=== PATIENT | female | born 1950 | race Caucasian/White ===

== ENCOUNTER → 2016-11-27 | Outpatient (CLI) | payer OTHER ==
[~2016-11-27] MED LIST: ATOR10TA88 PO; CALCTAB5 PO; CHOL200010 PO; IRBE1TAB50 PO; LEVO88TA3 PO
--- NOTE | 2016-11-27 13:59 | MAMMOGRAPHY REPORT ---
BILATERAL DIGITAL SCREENING MAMMOGRAM WITH CAD: 11/27/2016 TECHNIQUE: Current study was also evaluated with a Computer Aided Detection (CAD) system. Bilatera l CC and MLO views were obtained. COMPARISON: Comparison is made to exams dated: 11/06/2015 mammogram, 11/03/2014 mammogram, 1 mammogram, 11/01/2013 mammogram, 10/29/2012 mammogram, and 10/18/2010 mammogram - [facility]. BREAST COMPOSITION: There are scattered areas of fibroglandular density in both breasts. FINDINGS: No suspicious masses, calcifications, or areas of architectural distortion are noted in e ither breast. There has been no significant interval change compared to prior exams. Bilateral genaro gn-appearing calcifications are not significantly changed. IMPRESSION: ACR BI-RADS CATEGORY 2: BENIGN There is no mammographic evidence of malignancy. A 1 year screening mammogram is recommended. The p atient will receive written notification of the results. Approximately 10% of breast cancers are not detected with mammography. A negative mammographic repor t should not delay biopsy if a clinically suggestive mass is present. Jenni Zaman M.D. /:11/27/2016 12:25:28 Finish Photographer: Doris BARRETT(Tika)(Debby), [facility] letter sent: Normal 1/2 BI-RADS Code: ACR BI-RADS Category 2: Benign
== END | disposition home or self-care (01) ==
LOC: C.MAMM 10:48
PROVIDERS: ATTEND Family Medicine
DX: Z12.31 Encounter for screening mammogram for malignant neoplasm of breast (principal)

== ENCOUNTER → 2017-04-25 | Outpatient (CLI) | payer OTHER ==
[~2017-04-25] MED LIST changes: +ATOR10TA82 PO; -ATOR10TA88 PO
[2017-04-25 13:45] LABS: ALT/SGPT 26 U/L (12-78); BLOOD UREA NITROGEN 14 mg/dl (7-18); BUN/CREATININE RATIO 15.3 (10-20); CARBON DIOXIDE 25 mmol/L (21-32); CHLORIDE 105 mmol/L (98-107); CHOLESTEROL 164 mg/dl (0-200); CREATININE 0.93 mg/dl (0.60-1.20); GLUCOSE 87 mg/dl (70-99); SODIUM 141 mmol/L (136-145); TRIGLYCERIDES 115 mg/dl (0-150); VERY LOW DENSITY LIPOPROT CALC 23 mg/dl
[2017-04-25 13:47] LABS: CALCIUM 9.4 mg/dl (8.5-10.1)
[2017-04-25 13:55] LABS: ALB/GLOB RATIO 0.9 (0.9-2); ALKALINE PHOSPHATASE 83 U/L (45-117); AST/SGOT 17 U/L (15-37); CHOLESTEROL/HDL RATIO 3.1; HDL CHOLESTEROL 53 mg/dl; LDL CHOLESTEROL CALCULATED 88 mg/dl; THYROID STIMULATING HORMONE 0.971 uIu/ml (0.300-4.500)
== END | disposition home or self-care (01) ==
LOC: C.LABPVFM 07:55
PROVIDERS: ATTEND Family Medicine
DX: I10 Essential (primary) hypertension (principal); E78.5 Hyperlipidemia, unspecified; E03.9 Hypothyroidism, unspecified

== ENCOUNTER → 2017-06-02 | Outpatient (CLI) | payer OTHER ==
[~2017-06-02] MED LIST changes: -ATOR10TA82 PO; +ATOR10TA88 PO
[2017-06-02 18:23] LABS: LYME DISEASE AB IGM NEG (NEG)
[2017-06-02 18:26] LABS: LYME DISEASE AB IGG NEG (NEG)
== END | disposition home or self-care (01) ==
LOC: C.LABPVFM 15:02
PROVIDERS: ATTEND Nurse Practitioner
DX: S30.861A Insect bite (nonvenomous) of abdominal wall, initial encounter (principal); W57.XXXA Bitten or stung by nonvenomous insect and other nonvenomous arthropods, initial encounter; R53.83 Other fatigue; R25.2 Cramp and spasm

== ENCOUNTER → 2017-07-09 | Outpatient (CLI) | payer OTHER ==
[2017-07-09 13:21] LABS: BLOOD UREA NITROGEN 13 mg/dl (7-18); BUN/CREATININE RATIO 14.2 (10-20); CALCIUM 9.1 mg/dl (8.5-10.1); CARBON DIOXIDE 26 mmol/L (21-32); CHLORIDE 108 mmol/L (98-107); CREATININE 0.94 mg/dl (0.60-1.20); GLUCOSE 97 mg/dl (70-99); MAGNESIUM 2.1 mg/dl (1.8-2.4); POTASSIUM 4.2 mmol/L (3.5-5.1); SODIUM 139 mmol/L (136-145)
== END | disposition home or self-care (01) ==
LOC: C.LABPVFM 10:21
PROVIDERS: ATTEND Nurse Practitioner Family
DX: M79.1 Myalgia (principal); M60.9 Myositis, unspecified

== ENCOUNTER → 2017-07-11 | Outpatient (CLI) | payer OTHER ==
--- NOTE | 2017-07-11 12:02 | DIAGNOSTIC IMAGING REPORT ---
BILATERAL LOWER EXTREMITY VENOUS DOPPLER HISTORY: Bilateral leg pain. MYALGIA, MYOSITIS COMPARISON STUDY: None. FINDINGS: There is normal compressibility, flow, and augmentation within the bilateral lower extremity deep venous systems. IMPRESSION: No DVT within the right or left lower extremity. Electronically signed by: Tutu Hu M.D. 07/11/2017 12:00 PM Dictated Date/Time: 07/11/2017 12:00 PM
== END | disposition home or self-care (01) ==
LOC: C.ULTR 10:55
PROVIDERS: ATTEND Nurse Practitioner Family
DX: M79.1 Myalgia (principal); M79.604 Pain in right leg; M79.605 Pain in left leg

== ENCOUNTER → 2017-10-22 | Outpatient (CLI) | payer OTHER ==
[~2017-10-22] MED LIST changes: +ATOR10TA82 PO; -ATOR10TA88 PO
[2017-10-22 13:34] LABS: ALT/SGPT 20 U/L (12-78); BLOOD UREA NITROGEN 17 mg/dl (7-18); BUN/CREATININE RATIO 20.2 (10-20); CALCIUM 9.1 mg/dl (8.5-10.1); CARBON DIOXIDE 24 mmol/L (21-32); CHLORIDE 104 mmol/L (98-107); CHOLESTEROL 167 mg/dl (0-200); CREATININE 0.84 mg/dl (0.60-1.20); GLUCOSE 97 mg/dl (70-99); POTASSIUM 4.1 mmol/L (3.5-5.1); SODIUM 137 mmol/L (136-145); TRIGLYCERIDES 85 mg/dl (0-150); VERY LOW DENSITY LIPOPROT CALC 17 mg/dl
[2017-10-22 13:45] LABS: ALKALINE PHOSPHATASE 80 U/L (45-117); AST/SGOT 16 U/L (15-37); CHOLESTEROL/HDL RATIO 2.3; HDL CHOLESTEROL 73 mg/dl; LDL CHOLESTEROL CALCULATED 77 mg/dl; THYROID STIMULATING HORMONE 0.385 uIu/ml (0.300-4.500)
== END | disposition home or self-care (01) ==
LOC: C.LABPVFM 09:21
PROVIDERS: ATTEND Family Medicine
DX: I10 Essential (primary) hypertension (principal); E78.5 Hyperlipidemia, unspecified; E03.9 Hypothyroidism, unspecified; S30.861A Insect bite (nonvenomous) of abdominal wall, initial encounter; X58.XXXA Exposure to other specified factors, initial encounter; Z11.59 Encounter for screening for other viral diseases

== ENCOUNTER → 2017-12-01 | Outpatient (CLI) | payer OTHER ==
--- NOTE | 2017-12-02 07:51 | MAMMOGRAPHY REPORT ---
BILATERAL DIGITAL SCREENING MAMMOGRAM TOMOSYNTHESIS WITH CAD: 12/01/2017 CLINICAL HISTORY: Routine screening. Patient has no complaints. TECHNIQUE: Breast tomosynthesis in addition to standard 2D mammography was performed. Current study was also evaluated with a Computer Aided Detection (CAD) system. COMPARISON: Comparison is made to exams dated: 11/27/2016 mammogram, 11/06/2015 mammogram, 11/03/2014 mammogram, 11/01/2013 mammogram, 10/29/2012 mammogram, and 10/24/2011 mammogram - [facility]. BREAST COMPOSITION: There are scattered areas of fibroglandular density in both breasts. FINDINGS: There are diffuse bilateral benign coarse, round and punctate microcalcifications. No new suspicious mass, architectural distortion or cluster of microcalcifications is seen. IMPRESSION: ACR BI-RADS CATEGORY 1: NEGATIVE There is no mammographic evidence of malignancy. A 1 year screening mammogram is recommended. The pa tient will receive written notification of the results. Approximately 10% of breast cancers are not detected with mammography. A negative mammographic report should not delay biopsy if a clinically suggestive mass is present. Nikole Aguilar M.D. ay/:12/01/2017 16:34:10 Shaper Machine Hand: Keeley Dolan, [facility] letter sent: Normal 1/2 BI-RADS Code: ACR BI-RADS Category 1: Negative
== END | disposition home or self-care (01) ==
LOC: C.MAMM 10:05
PROVIDERS: ATTEND Family Medicine
DX: Z12.31 Encounter for screening mammogram for malignant neoplasm of breast (principal)

== ENCOUNTER → 2018-02-26 | Outpatient (CLI) | payer OTHER ==
[2018-02-26 13:59] LABS: ALBUMIN 3.8 gm/dl (3.4-5.0); ALT/SGPT 21 U/L (12-78); BLOOD UREA NITROGEN 17 mg/dl (7-18); CALCIUM 9.1 mg/dl (8.5-10.1); CARBON DIOXIDE 27 mmol/L (21-32); CHOLESTEROL 157 mg/dl (0-200); CREATININE 0.89 mg/dl (0.60-1.20); GLUCOSE 94 mg/dl (70-99); SODIUM 138 mmol/L (136-145)
[2018-02-26 14:13] LABS: ALKALINE PHOSPHATASE 85 U/L (45-117); AST/SGOT 16 U/L (15-37); LDL CHOLESTEROL CALCULATED 76 mg/dl; TOTAL PROTEIN 7.7 gm/dl (6.4-8.2)
== END | disposition home or self-care (01) ==
LOC: C.LABPVFM 08:05
PROVIDERS: ATTEND Family Medicine
DX: I10 Essential (primary) hypertension (principal); E78.5 Hyperlipidemia, unspecified; E03.9 Hypothyroidism, unspecified; L30.9 Dermatitis, unspecified

== ENCOUNTER 2022-01-18 02:26 | Inpatient (IN) ==
[2022-01-18] MEDS ORDERED: ONDANSETRON INJ 2 MG/ML 2 ML VIAL IV STA (02:55)
[2022-01-18] MEDS ORDERED: SODIUM CHLORIDE 0.9% 500 ML IV STA (02:55)
[2022-01-18 03:18] LABS: Hematocrit (blood only) 50.1 % (37-47); Hemoglobin 17.2 g/dL (12.0-16.0); Mean Corpuscular Hemoglobin 31.9 pg (25-34); Mean Corpuscular Hgb Conc 34.3 g/dL (32-36); Mean Corpuscular Volume 92.8 fL (80-100); Mean Platelet Volume 10.7 fL (7.4-10.4); Platelet Count 421 K/uL (130-400); RDW Coefficient of Variation 13.2 % (11.5-14.5); RDW Standard Deviation 44.9 fL (36.4-46.3); White Blood Count 22.45 K/uL (4.8-10.8)
[2022-01-18 03:47] LABS: Basophils # (auto) 0.02 K/uL (0-0.2); Basophils % (auto) 0.1 %; Eosinophils # (auto) 0.01 K/uL (0-0.5); Immature Granulocytes # (auto) 0.05 K/uL (0.00-0.02); Immature Granulocytes % (auto) 0.2 %; Lymphocytes # (auto) 1.35 K/uL (1.2-3.4); Monocytes # (auto) 0.86 K/uL (0.11-0.59); Monocytes % (auto) 3.8 %; Neutrophils # (auto) 20.16 K/uL (1.4-6.5); Neutrophils % (auto) 89.9 %; RBC Morphology Unremarkable
[2022-01-18 03:52] LABS: Alanine Aminotransferase 16 U/L (7-52); BUN Creatinine Ratio 21.2 (10-20); Bilirubin,Total 1.1 mg/dl (0.2-1.0); Blood Urea Nitrogen 22 mg/dl (6-23); Calcium 10.5 mg/dl (8.5-10.1); Carbon Dioxide 21 mmol/L (21-32); Chloride 100 mmol/L (98-107); Creatinine Clr Calc Pharmacy 43.6 ml/min; Est GFR (African American) 61.7 ml/min; Est GFR (Non-African American) 53.3 ml/min; Glucose 212 mg/dl (70-99(Fasting)); Lipase 10 U/L (11-82); Total Protein 8.3 gm/dl (6.0-8.3)
[2022-01-18 03:55] LABS: Troponin I 0.19 ng/ml (0-0.04)
--- NOTE | 2022-01-18 04:19 | Emergency Department Note ---
Impression & Plan Small bowel obstruction, Elevated troponin The patient will be evaluated by the [facility] ED Provider Note NAME: CHACE SORIANO AGE: 71 SEX: F ARRIVES VIA: Walk-In INFORMANT: Patient and ED PROVIDER(S): Ro Kay DO CHIEF COMPLAINT: Abdominal pain PLAN: Disposition: The patient will be evaluated by the [facility] for further care Condition: Stable MEDICAL DECISION MAKING: This is a 71-year-old female patient who presents to the emergency department with abdominal pain started yesterday morning and vomiting. The right upper quadrant ultrasound was unremarkable. The patient went on for CT scan which showed evidence of a small bowel obstruction. Patient was noted to have an elevated troponin with a significant leukocytosis. EKG was unremarkable. Patient had a low-grade fever along with some diarrhea. [facility] for further management. The patient was not experiencing any nausea or vomiting at this time and her pain was controlled and therefore I did not place an NG tube at the moment. She will remain n.p.o. on IV fluids Triage Nursing notes reviewed and agree with them. Additional history obtained from who is at the bedside Vital Signs: reviewed and unremarkable Differential diagnosis: small bowel obstruction, ischemic gut, cholecystitis, appendicitis, diverticulitis ER treatment provided: IV normal saline bolus IV Zofran IV normal saline drip Diagnostics interpreted by me: ECG: Normal sinus rhythm at a rate of [address] segment elevation or signs of ischemia. There is no ectopy. Cardiac Monitoring: Normal sinus rhythm at a rate of 76 Laboratory studies: See below Imaging studies: As per stat rad US RUQ: Limited by bowel gas and patient compliance. Liver is normal. No focal intrahepatic lesion. Multiple shadowing gallstones extending to the gallbladder neck. No sonographic Caceres's sign, wall thickening or pericholecystic fluid. No biliary ductal dilation. The common bile duct is normal in caliber at 2.7 mm. Pancreas is grossly unremarkable. Right kidney normal in appearance. Trace ascit es. CT ABDOMEN & PELVIS With Contrast: Bowel obstruction with transition point in the lower pelvis (series 2 image 75) with immediate upstream fecalization. Upstream bowel loops measure up to 3.2 cm. Distal decompression of the terminal ileum noted. Mild perihepatic ascites which is likely reactive in nature. No evidence of free air. Tubal ligation clips. Colonic diverticulosis. No evidence of diverticulitis. Normal appendix. HPI: 71/F arrives for evaluation of abdominal pain. The patient developed diffuse periumbilical abdominal pain started yesterday morning but became worse this afternoon when she vomited. The patient describes intermittent fever throughout the afternoon and evening with some associated minimal diarrhea. The patient denies ever having pain like this in the past. The patient does describe the pain as being worse when she moves around. The patient originally threw up the food that she had eaten earlier in the day but upon arrival here in the emergency department, she threw up bile. ROS: See above HPI for pertinent positives & negatives. A total of 10 systems reviewed and were otherwise negative. PAST MEDICAL HISTORY:See Below PAST SURGICAL HISTORY:See Below FAMILY HISTORY:See Below SOCIAL HISTORY:Does not smoke or drink alcohol. She lives with her . HOME MEDICATIONS:See list ALLERGIES:See list VITALS:See Below PHYSICAL EXAMINATION: HEENT: Head - normocephalic and atraumatic. Pupils are equal, round, and reactive to light. Extraocular eye muscles are intact, and sclera are anicteric. Nose - moist nasal mucosa without discharge. Mouth - moist buccal mucosa. Oropharynx is nonerythematous and there is no tonsillar exudate or edema noted. Neck: Supple; no JVD or cervical lymphadenopathy Heart: Regular rate and rhythm. There is a normal S1 and S2 with no murmurs, clicks, or gallops appreciated. Lungs: Clear to auscultation bilaterally with no wheezes, rales, or rhonchi. Abdomen: Soft, nondistended moderately tender to palpation around the umbilicus and in the right upper quadrant. With good bowel sounds. There are no palpable pulsatile masses or hepatosplenomegaly. There is no guarding, rigidity, or rebound noted. Extremities: No evidence of cyanosis, clubbing, or edema. There are easily palpable peripheral pulses. Skin: Pale, warm and dry with good turgor and no rashes. ED COURSE: Times/Reassessments: 0230: The patient was evaluated in room C3. A complete history and physical was performed. An IV lock was initiated and labs were drawn as above. The patient was given 4 mg of IV Zofran and bolused with IV nor mal saline solution. An order was placed for continuous cardiac monitoring. The patient was in a n ormal sinus rhythm at a rate of 76 A twelve-lead EKG was obtained. She will go for ultrasound of the right upper quadrant to evaluate the gallbladder. The ultrasound was negative. Upon repeat evaluation of the patient, she still was comfortable. She went for CT scan of the abdomen and pelvis and this revealed a small bowel obstruction. I reviewed the rest of the results with the patient including the elevated troponin. The patient was started on IV normal saline drip [facility] will evaluate for further management. Ro Kay, Past Med/Surg History Medical History Benign essential tremor Hypertension Hypothyroidism Mixed hyperlipidemia Surgical History H/O arthroscopic knee surgery History of cataract surgery History of colonoscopy Family History Mother CHF (congestive heart failure) Father CHF (congestive heart failure) Sister Coronary heart disease Other Breast cancer Denies family history of Ovarian cancer Prostate cancer Myocardial infarction Colorectal cancer Social History Smoking Status: Never smoker Hx Alcohol Use: No Hx Substance Use: No Preferred Language: Bengali Communication Ability: Effective Phone Operator Required: No Beliefs That Will Affect Care: None marital status: Current Living Situation: Spouse current occupational status: retired Feels Safe at Home: Yes caffeine: No Dental Care, Regularly: Yes Physical Activity Frequency: 3-4 Times per Week Seatbelt Use: always Sunscreen Use: Yes Assistive Devices: Glasses Allergies Allergies Allergy/AdvReac Type Severity Reaction Status Date / Time amoxicillin Allergy Intermediate SWELLING Verified 01/18/22 02:56 AND REDNESS simvastatin Allergy Mild felt sick Verified 01/18/22 02:56 tetanus toxoid, adsorbed Allergy Mild Red, hard, Verified 01/18/22 02:56 infected Prevnar 13 Intramuscular Allergy Unknown PT NOT Uncoded 01/18/22 02:56 Suspe SURE IF HAD PROBLEM WITH Home Meds Home Medications Medication Instructions Recorded Confirmed cholecalciferol (vitamin D3) 50 2,000 units PO PM 05/17/19 01/18/22 mcg (2,000 unit) capsule aspirin 81 mg tablet,delayed 81 mg PO PM #30 tab 08/24/19 01/18/22 release calcium carbonate 600 mg calcium 600 mg PO PM tab 08/24/19 01/18/22 (1,500 mg) tablet (Calcium) Previous Rx's Medication Instructions Recorded levothyroxine 88 mcg tablet 88 mcg PO QAM #90 tab 03/06/21 donepezil 5 mg tablet (Aricept) 5 mg PO DAILY #30 tab 05/01/21 atorvastatin 10 mg tablet 10 mg PO PM #90 tab 07/24/21 irbesartan 300 mg tablet 300 mg PO PM #90 tab 09/17/21 Results & Data (ED) Vital Signs Vital Signs - 24 hr 01/18/22 02:26 01/18/22 03:08 01/18/22 03:23 Temperature 36.0 C L Temperature Source Temporal Artery Scan Pulse Rate 90 Pulse Rate [Finger] 76 Pulse Rhythm [Finger] Regular Pulse Strength [Finger] Normal Respiratory Rate 18 18 Respiratory Effort / Characteristics Non-Labored Spontaneous Respiratory Depth Normal Blood Pressure 108/68 Blood Pressure [Left Arm] 129/82 Blood Pressure Mean 81 Blood Pressure Mean [Left Arm] 97 Blood Pressure Position Sitting Blood Pressure Position [Left Arm] Sitting Pulse Oximetry 96 94 94 Oxygen Delivery Method Room Air Room Air Room Air Sepsis Recent Fever Within 48 Hours No Sepsis New/Unexplained Change in Mental Status N/A Sepsis Action Taken by Nursing No Action Required 01/18/22 05:50 01/18/22 07:00 Temperature Temperature Source Pulse Rate Pulse Rate [Finger] 82 87 Pulse Rhythm [Finger] Regular Pulse Strength [Finger] Normal Respiratory Rate 18 18 Respiratory Effort / Characteristics Non-Labored Spontaneous Non-Labored Respiratory Depth Normal Normal Blood Pressure Blood Pressure [Left Arm] 148/76 H 133/66 Blood Pressure Mean Blood Pressure Mean [Left Arm] 100 88 Blood Pressure Position Blood Pressure Position [Left Arm] Sitting Pulse Oximetry 98 95 Oxygen Delivery Method Room Air Room Air Sepsis Recent Fever Within 48 Hours Sepsis New/Unexplained Change in Mental Status Sepsis Action Taken by Nursing Laboratory Data Result diagrams: 01/18/22 03:10 01/18/22 04:36 Lab Results 01/18/22 01/18/22 01/18/22 Range/Units 02:55 03:10 03:10 WBC 22.45 H (4.8-10.8) K/uL RBC 5.40 (4.2-5.4) M/uL Hgb 17.2 H (12.0-16.0) g/dL Hct 50.1 H (37-47) % MCV 92.8 (80-100) fL MCH 31.9 (25-34) pg MCHC 34.3 (32-36) g/dL RDW Std Deviation 44.9 (36.4-46.3) fL RDW Coeff of José 13.2 (11.5-14.5) % Plt Count 421 H (130-400) K/uL MPV 10.7 H (7.4-10.4) fL Immature Gran % (Auto) 0.2 % Neut % (Auto) 89.9 % Lymph % (Auto) 6.0 % Chilton % (Auto) 3.8 % Eos % (Auto) 0.0 % Baso % (Auto) 0.1 % Neut # (Auto) 20.16 H (1.4-6.5) K/uL Lymph # (Auto) 1.35 (1.2-3.4) K/uL Chilton # (Auto) 0.86 H (0.11-0.59) K/uL Eos # (Auto) 0.01 (0-0.5) K/uL Baso # (Auto) 0.02 (0-0.2) K/uL Immature Gran # (Auto) 0.05 H (0.00-0.02) K/uL RBC Morphology Unremarkable Sodium (136-145) mmol/L Potassium (3.5-5.1) mmol/L Chloride 100 (98-107) mmol/L Carbon Dioxide 21 (21-32) mmol/L Anion Gap TNP BUN 22 (6-23) mg/dl Creatinine 1.04 (0.6-1.2) mg/dl Est Cr Clr Drug Dosing 43.6 ml/min Est GFR ( Amer) 61.7 ml/min Est GFR (Non-Af Amer) 53.3 ml/min BUN/Creatinine Ratio 21.2 H (10-20) Glucose 212 H (70-99(Fasting)) mg/dl Estimat Average Glucose 126 mg/dl Hemoglobin A1c 6.0 H (4.5-5.6) % Calcium 10.5 H (8.5-10.1) mg/dl Phosphorus (2.5-4.9) mg/dl Magnesium (1.7-2.4) mg/dl Total Bilirubin 1.1 H (0.2-1.0) mg/dl AST (13-39) U/L ALT 16 (7-52) U/L Alkaline Phosphatase (34-104) U/L Troponin I 0.19 H* (0-0.04) ng/ml Total Protein 8.3 (6.0-8.3) gm/dl Albumin (3.4-5.0) gm/dl Globulin TNP Albumin/Globulin Ratio TNP Lipase 10 L (11-82) U/L Urine Color Urine Appearance (Clear) Urine pH (4.5-7.5) Ur Specific Keystone (1.000-1.030) Urine Protein (Negative) Urine Glucose (UA) (Negative) Urine Ketones (Negative) Urine Blood (Negative) Urine Nitrite (Negative) Urine Bilirubin (Negative) Urine Urobilinogen (Negative) Ur Leukocyte Esterase (Negative) SARS-CoV-2, RNA, NAAT (NEGATIVE) 01/18/22 01/18/22 01/18/22 Range/Units 03:43 04:36 04:36 WBC (4.8-10.8) K/uL RBC (4.2-5.4) M/uL Hgb (12.0-16.0) g/dL Hct (37-47) % MCV (80-100) fL MCH (25-34) pg MCHC (32-36) g/dL RDW Std Deviation (36.4-46.3) fL RDW Coeff of José (11.5-14.5) % Plt Count (130-400) K/uL MPV (7.4-10.4) fL Immature Gran % (Auto) % Neut % (Auto) % Lymph % (Auto) % Chilton % (Auto) % Eos % (Auto) % Baso % (Auto) % Neut # (Auto) (1.4-6.5) K/uL Lymph # (Auto) (1.2-3.4) K/uL Chilton # (Auto) (0.11-0.59) K/uL Eos # (Auto) (0-0.5) K/uL Baso # (Auto) (0-0.2) K/uL Immature Gran # (Auto) (0.00-0.02) K/uL RBC Morphology Sodium 138 (136-145) mmol/L Potassium 4.3 (3.5-5.1) mmol/L Chloride (98-107) mmol/L Carbon Dioxide (21-32) mmol/L Anion Gap BUN (6-23) mg/dl Creatinine (0.6-1.2) mg/dl Est Cr Clr Drug Dosing ml/min Est GFR ( Amer) ml/min Est GFR (Non-Af Amer) ml/min BUN/Creatinine Ratio (10-20) Glucose (70-99(Fasting)) mg/dl Estimat Average Glucose mg/dl Hemoglobin A1c (4.5-5.6) % Calcium (8.5-10.1) mg/dl Phosphorus 4.2 (2.5-4.9) mg/dl Magnesium 1.6 L (1.7-2.4) mg/dl Total Bilirubin (0.2-1.0) mg/dl AST 14 (13-39) U/L ALT (7-52) U/L Alkaline Phosphatase 81 (34-104) U/L Troponin I (0-0.04) ng/ml Total Protein (6.0-8.3) gm/dl Albumin 4.2 (3.4-5.0) gm/dl Globulin Albumin/Globulin Ratio Lipase (11-82) U/L Urine Color Urine Appearance (Clear) Urine pH (4.5-7.5) Ur Specific Keystone (1.000-1.030) Urine Protein (Negative) Urine Glucose (UA) (Negative) Urine Ketones (Negative) Urine Blood (Negative) Urine Nitrite (Negative) Urine Bilirubin (Negative) Urine Urobilinogen (Negative) Ur Leukocyte Esterase (Negative) SARS-CoV-2, RNA, NAAT NEGATIVE (NEGATIVE) 01/18/22 Range/Units 04:37 WBC (4.8-10.8) K/uL RBC (4.2-5.4) M/uL Hgb (12.0-16.0) g/dL Hct (37-47) % MCV (80-100) fL MCH (25-34) pg MCHC (32-36) g/dL RDW Std Deviation (36.4-46.3) fL RDW Coeff of José (11.5-14.5) % Plt Count (130-400) K/uL MPV (7.4-10.4) fL Immature Gran % (Auto) % Neut % (Auto) % Lymph % (Auto) % Chilton % (Auto) % Eos % (Auto) % Baso % (Auto) % Neut # (Auto) (1.4-6.5) K/uL Lymph # (Auto) (1.2-3.4) K/uL [place]ilton # (Auto) (0.11-0.59) K/uL Eos # (Auto) (0-0.5) K/uL Baso # (Auto) (0-0.2) K/uL Immature Gran # (Auto) (0.00-0.02) K/uL RBC Morphology Sodium (136-145) mmol/L Potassium (3.5-5.1) mmol/L Chloride (98-107) mmol/L Carbon Dioxide (21-32) mmol/L Anion Gap BUN (6-23) mg/dl Creatinine (0.6-1.2) mg/dl Est Cr Clr Drug Dosing ml/min Est GFR ( Amer) ml/min Est GFR (Non-Af Amer) ml/min BUN/Creatinine Ratio (10-20) Glucose (70-99(Fasting)) mg/dl Estimat Average Glucose mg/dl Hemoglobin A1c (4.5-5.6) % Calcium (8.5-10.1) mg/dl Phosphorus (2.5-4.9) mg/dl Magnesium (1.7-2.4) mg/dl Total Bilirubin (0.2-1.0) mg/dl AST (13-39) U/L ALT (7-52) U/L Alkaline Phosphatase (34-104) U/L Troponin I (0-0.04) ng/ml Total Protein (6.0-8.3) gm/dl Albumin (3.4-5.0) gm/dl Globulin Albumin/Globulin Ratio Lipase (11-82) U/L Urine Color Yellow Urine Appearance Clear (Clear) Urine pH 5.0 (4.5-7.5) Ur Specific Keystone >= 1.030 (1.000-1.030) Urine Protein 1+ H (Negative) Urine Glucose (UA) Negative (Negative) Urine Ketones 1+ H (Negative) Urine Blood Negative (Negative) Urine Nitrite Negative (Negative) Urine Bilirubin 1+ H (Negative) Urine Urobilinogen Negative (Negative) Ur Leukocyte Esterase Negative (Negative) SARS-CoV-2, RNA, NAAT (NEGATIVE) Administered Medications Heparin Sodium (Porcine) (Heparin Sod 5,000 Unit/0.5 Ml Vial) 5,000 units SQ Q12 MONET Stop: 02/17/22 10:29 Last Admin: 01/18/22 11:20 Dose: 5,000 units Documented by: [id number] Dextrose/Lactated Ringer's (D5w And Lactated Ringers) 1,000 mls @ 100 mls/hr IV .Q10H MONET Stop: 02/17/22 10:09 Last Admin: 01/18/22 11:20 Dose: 100 mls/hr Documented by: [id number] Discontinued Medications Sodium Chloride (Nss) 500 mls @ 999 mls/hr IV .Q31M STA Stop: 01/18/22 03:25 Last Infusion: 01/18/22 03:37 Dose: 0 mls/hr Documented by: [id number] Admin: 01/18/22 03:06 Dose: 999 mls/hr Documented by: [id number] Sodium Chloride (Nss) 500 mls @ 125 mls/hr IV .Q4H MONET Stop: 02/17/22 06:44 Last Infusion: 01/18/22 10:55 Dose: 0 mls/hr Documented by: [id number] Admin: 01/18/22 06:45 Dose: 125 mls/hr Documented by: [id number] Ertapenem (Invanz) 10 mls @ 2 mls/min IV NOW STA Stop: 01/18/22 07:41 Last Admin: 01/18/22 08:58 Dose: 2 mls/min Documented by: [id number] Ioversol (Optiray 320 100ml) 95 ml IV ONCE ONE Stop: 01/18/22 05:48 Last Admin: 01/18/22 05:47 Dose: 95 ml Documented by: [id number] Ondansetron HCl (Ondansetron Inj 2 Mg/Ml 2 Ml Vial) 4 mg IV NOW STA Stop: 01/18/22 02:56 Last Admin: 01/18/22 03:05 Dose: 4 mg Documented by: [id number] Imaging Data Radiologist's Impression: Gallbladder Ultrasound 01/18/22 03:37 ABDOMINAL ULTRASOUND, RIGHT UPPER QUADRANT HISTORY: Right upper quadrant abdominal pain.. COMPARISON: None. FINDINGS: Pancreas: The pancreas demonstrates a normal echotexture. Liver: Unremarkable. Trace ascites adjacent to the liver. Gallbladder: A few gallstones. No gallbladder wall thickening. Negative so nographic Caceres sign. CBD: 3 mm. Right kidney: No hydronephrosis. IMPRESSION: 1. Cholelithiasis. No gallbladder wall thickening. 2. Trace ascites is noted. ACT 112: Negative or not required by law. Electronically signed by: Tutu Hu M.D. 01/18/2022 7:49 AM Abdomen/Pelvis CT 01/18/22 05:27 CT OF THE ABDOMEN AND PELVIS WITH CONTRAST CLINICAL HISTORY: Abdominal pain, nausea, vomiting and diarrhea. Evaluate for diverticulitis versus appendicitis. COMPARISON STUDY: Right upper quadrant ultrasound performed earlier today. TECHNIQUE: Following IV administration of 95 mL of Optiray, axial images of the abdomen and pelvis were obtained from the lung bases to the proximal femurs. Images were reviewed in the axial, sagittal, and coronal planes. IV contrast was administered without complication. Automated exposure control was utilized for the study. A dose lowering technique was utilized adhering to the principles of ALARA. CT DOSE: 501.05 mGy.cm FINDINGS: Lung bases are unremarkable. No pneumatosis, free air or portal venous gas is present. A small amount of abdominal and pelvic ascites is noted. No hepatic lesions are present. Probable hepatic steatosis. No biliary or pancreatic ductal dilatation is present. The spleen, adrenal glands, kidneys and pancreas are unremarkable. There are gallstones within the gallbladder. There is no evidence for acute cholecystitis. There are findings consistent with a small bowel obstruction. Specifically, the proximal to mid small bowel is moderately dilated and fluid-filled. Small bowel feces sign is noted. Transition point within the central pelvis on axial image 371 of 476 is noted. Distal small bowel is decompressed. Small amount of interloop ascites is present. There are pelvic surgical clips. No acute fracture or suspicious lesion is identified within visualized skeletal structures. Major vasculature is patent. No hydronephrosis. Colonic diverticulosis is noted without evidence for acute diverticulitis. The appendix is normal. There is no lymphadenopathy. No abscess. IMPRESSION: Findings consistent with a small bowel obstruction with transition point within the distal ileum. Small amount of associated ascites and mesenteric infiltration. ACT 112: Negative or not required by law. Electronically signed by: Owen Mims M.D. 01/18/2022 6:48 AM Discharge Plan Visit Data Chief Complaint: Abdominal Pain Stated Complaint: ABD PAIN ED Provider: Ro Kay Discharge Problem: Small bowel obstruction, Elevated troponin Patient Disposition: Admitted As Inpatient Discharge Instructions Interventions: ED Discharge Assessment Last Done: 01/18/22 15:00
[2022-01-18 04:53] LABS: Appearance Urine Clear (Clear); Bilirubin Urine 1+ (Negative); Blood Urine Negative (Negative); Glucose Urine UA Negative (Negative); Ketones Urine 1+ (Negative); Leukocyte Esterase Urine Negative (Negative); Nitrite Urine Negative (Negative); Protein Urine 1+ (Negative); Specific Gravity Urine >= 1.030 (1.000-1.030); Urobilinogen Urine Negative (Negative)
[2022-01-18 04:55] LABS: Color Urine Yellow
[2022-01-18 05:01] LABS: Albumin Level 4.2 gm/dl (3.4-5.0); Potassium 4.3 mmol/L (3.5-5.1)
[2022-01-18] MEDS ORDERED: OPTIRAY 320 100ml IV ONE (05:47)
[2022-01-18] MEDS ORDERED: SODIUM CHLORIDE 0.9% 500 ML IV SCH (06:45)
--- NOTE | 2022-01-18 06:49 | CT Scan Report ---
CT OF THE ABDOMEN AND PELVIS WITH CONTRAST CLINICAL HISTORY: Abdominal pain, nausea, vomiting and diarrhea. Evaluate for diverticulitis versus a ppendicitis. COMPARISON STUDY: Right upper quadrant ultrasound performed earlier today. TECHNIQUE: Following IV administration of 95 mL of Optiray, axial images of the abdomen and pelvis we re obtained from the lung bases to the proximal femurs. Images were reviewed in the axial, sagittal, and coronal planes. IV contrast was administered without complication. Automated exposure control wa s utilized for the study. A dose lowering technique was utilized adhering to the principles of ALARA . CT DOSE: 501.05 mGy.cm FINDINGS: Lung bases are unremarkable. No pneumatosis, free air or portal venous gas is present. A sm all amount of abdominal and pelvic ascites is noted. No hepatic lesions are present. Probable hepatic steatosis. No biliary or pancreatic ductal dilatation is present. The spleen, adrenal glands, kidney s and pancreas are unremarkable. There are gallstones within the gallbladder. There is no evidence fo r acute cholecystitis. There are findings consistent with a small bowel obstruction. Specifically, th e proximal to mid small bowel is moderately dilated and fluid-filled. Small bowel feces sign is noted . Transition point within the central pelvis on axial image 371 of 476 is noted. Distal small bowel i s decompressed. Small amount of interloop ascites is present. There are pelvic surgical clips. No acu te fracture or suspicious lesion is identified within visualized skeletal structures. Major vasculatu re is patent. No hydronephrosis. Colonic diverticulosis is noted without evidence for acute diverticu litis. The appendix is normal. There is no lymphadenopathy. No abscess. IMPRESSION: Findings consistent with a small bowel obstruction with transition point within the dist al ileum. Small amount of associated ascites and mesenteric infiltration. ACT 112: Negative or not required by law. Electronically signed by: Owen Mims M.D. 01/18/2022 6:48 AM
[2022-01-18] MEDS ORDERED: ERTAPENEM SODIUM 10 ML IV STA (07:37)
[2022-01-18] MEDS ORDERED: hydrALAZINE HCL 20 MG/ML VIAL IV PRN (07:37)
--- NOTE | 2022-01-18 07:50 | Ultrasound Report ---
ABDOMINAL ULTRASOUND, RIGHT UPPER QUADRANT HISTORY: Right upper quadrant abdominal pain.. COMPARISON: None. FINDINGS: Pancreas: The pancreas demonstrates a normal echotexture. Liver: Unremarkable. Trace ascites adjacent to the liver. Gallbladder: A few gallstones. No gallbladder wall thickening. Negative sonographic Caceres sign. CBD: 3 mm. Right kidney: No hydronephrosis. IMPRESSION: 1. Cholelithiasis. No gallbladder wall thickening. 2. Trace ascites is noted. ACT 112: Negative or not required by law. Electronically signed by: Tutu Hu M.D. 01/18/2022 7:49 AM
--- NOTE | 2022-01-18 09:47 | History & Physical Report ---
Date of Service January 18, 2022 Assessment & Plan (1) SBO (small bowel obstruction): Plan: 71-year-old white female with a past medical history of HTN, HLD and hypothyroi dism presented to the emergency department with abdominal pain and found to have radiographic evidence of a small bowel obstruction and associated leukocytosis hospitalized for further evaluation and care. * Past surgical history includes: Bilateral tubal ligation. Uncertain if this is a mechanical obstruction from adhesions * Does have associated leukocytosis. This could perhaps be reactive from vomiting or etiology could be infectious * At any rate, we will keep her n.p.o. for bowel rest * Hold off on NGT for now as she is not having any abdominal discomfort at the moment, she denies nausea, her abdomen is soft and nondistended. Would have low threshold to advance NGT should symptoms worsen * Ambulation encouraged * IV Dilaudid for pain and IV Zofran for nausea * Consult general surgery. Appreciate assistance * Will initiate empiric antibiotics given the associated leukocytosis and concer n for infectious etiology. She has a penicillin allergy and ideally would use IV Levaquin/Flagyl; however, Flagyl unavailable due to lack of supplies. We will use Invanz for now but could transition to Levaquin/Flagyl once able to tolerate orals. * Patient is UTD with colonoscopy done 2 to 3 years ago and "normal" per patient * Follow-up labs and KUB in the a.m. * Continue to follow clinically (2) Leukocytosis: Plan: * ? Reactive versus infectious as outlined above * Empiric antibiotics as outlined above (3) Elevated troponin: Plan: * Presenting troponin slightly elevated at 0.19. Denies reports of chest pain. EKG nonacute. * Stress echocardiogram done 04/23/2021 and negative for ischemia * Could be supply/demand mismatch secondary to #1 * Cycle troponin * Follow-up EKG in a.m. * Update echocardiogram * Pending above, would consider cardiology consult but can hold off for now (4) Hypertension: Plan: * Given n.p.o. status, her oral antihypertensive agents are currently on hold * IV hydralazine ordered with parameters (5) Hypothyroidism: Plan: * Hold Synthroid currently given n.p.o. status but resume once oral intake ree stablished Plan: * Plan of care will be discussed with Dr. Gomez. Further orders as warranted. History of Present Illness Chief Complaint: Abdominal pain X 2 days Primary Care Provider: KYLE Schreiber Mrs. Gamez is a 71-year-old white female with an underlying past medical history of HTN, HLD, and hypothyroidism. She presented to the emergency department complaining of intermittent abdominal discomfort X 2 days. Started yesterday late morning. Located in the LLQ and radiates into the suprapubic region. Has been waxing and waning. Worse after eating lunch yesterday. Described as a cramping sensation and at its worst is a 6/10. Reports that the discomfort c omes in waves and although she did not do note that it was aggravated by oral intake, her reports that it seemed much worse after lunch. Was unable to eat dinner last evening because of the pain. Denies any fevers or chills but did have associated vomiting X3 bouts. Last normal bowel movement was yesterday morning and since then it has been loose stools. No other ill contacts. Presented to the emergency department where she was found to have leukocytosis of 22,000 with a left shift and radiographic evidence of a small bowel obstruction. Only abdominal surgeries in the past is a laparoscopic bilateral tubal ligation. She is up-to-date with colonoscopy (done 2 to 3 years ago and normal per patient). She was treated with IV Zofran in the emergency department and subsequently hospitalized for further evaluation and care. Allergies Allergy/AdvReac Type Severity Reaction Status Date / Time amoxicillin Allergy Intermediate SWELLING Verified 01/18/22 02:56 AND REDNESS simvastatin Allergy Mild felt sick Verified 01/18/22 02:56 tetanus toxoid, adsorbed Allergy Mild Red, hard, Verified 01/18/22 02:56 infected Prevnar 13 Intramuscular Allergy Unknown PT NOT Uncoded 01/18/22 02:56 Suspe SURE IF HAD PROBLEM WITH Home Medications Medication Instructions Recorded Confirmed Type cholecalciferol (vitamin D3) 50 2,000 units PO PM 05/17/19 01/18/22 History mcg (2,000 unit) capsule aspirin 81 mg tablet,delayed 81 mg PO PM #30 tab 08/24/19 01/18/22 History release calcium carbonate 600 mg calcium 600 mg PO PM tab 08/24/19 01/18/22 History (1,500 mg) tablet (Calcium) levothyroxine 88 mcg tablet 88 mcg PO QAM #90 tab 04/20/21 03/04/22 Rx donepezil 5 mg tablet (Aricept) 5 mg PO DAILY #30 tab 05/01/21 01/18/22 Rx atorvastatin 10 mg tablet 10 mg PO PM #90 tab 07/24/21 01/18/22 Rx irbesartan 300 mg tablet 300 mg PO PM #90 tab 09/17/21 01/18/22 Rx Past Med/Surg History Medical History Benign essential tremor Hypertension Hypothyroidism Mixed hyperlipidemia Surgical History H/O arthroscopic knee surgery History of cataract surgery History of colonoscopy Family History Mother CHF (congestive heart failure) Father CHF (congestive heart failure) Sister Coronary heart disease Other Breast cancer Denies family history of Ovarian cancer Prostate cancer Myocardial infarction Colorectal cancer Social History Smoking Status: Never smoker Second Hand Exposure: No; Hx Alcohol Use: No Hx Substance Use: No Preferred Language: American Communication Ability: Effective 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 Beliefs That Will Affect Care: None marital status: Current Living Situation: Spouse current occupational status: retired Feels Safe at Home: Yes caffeine: No Dental Care, Regularly: Yes Physical Activity Frequency: 3-4 Times per Week Seatbelt Use: always Sunscreen Use: Yes Assistive Devices: None Review of Systems Review of Systems: All systems reviewed and are unremarkable except as noted in HPI and below Denies fevers, chills, headache, nasal congestion, sore throat, cough, chest pain, shortness of breath, palpitations, orthopnea, PND, constipation, dysuria, hematuria, frequency, back pain, joint pain or swelling, easy bruising or bleeding, skin lesions or rashes. Physical Exam Physical Exam: General: Resting comfortably in her hospital bed. She does not appear in any discomfort. She does not appear ill or toxic. NAD. HEENT: Head is AT/NC. Buccal mucosa is moist and pink. Poor dentition Neck: No JVD. Negative hepatojugular reflex Cardiac: RRR with 1/6 to 2/6 ABBY Lungs: CTA without W/R/R Abdomen: Hypoactive X4. Abdomen is nondistended. It is soft with tenderness in the LL and RYAN quadrants Extremities: No peripheral clubbing cyanosis or edema Neuro: A&O X4. Cranial nerves II through XII are grossly intact. No focal neuro deficits Skin: No obvious skin lesions or rashes Psych: Appropriate affect. Pleasant and cooperative Results & Data Results & Data ([facility]) Vital Signs (Past 12 Hours) Vital Signs Temp Pulse Pulse Resp BP BP Pulse Ox 01/18/22 05:50 82 18 148/76 H 98 01/18/22 03:23 76 18 129/82 94 01/18/22 03:08 94 01/18/22 02:26 36.0 C L 90 18 108/68 96 Laboratory Results 01/18/22 03:10 Sodium: 138 Potassium: 4.3 Chloride: 100 CO2: 21 BUN: 22 Creatinine: 1.[address] of the abdomen and pelvis: FINDINGS: Lung bases are unremarkable. No pneumatosis, free air or portal venous gas is present. A small amount of abdominal and pelvic ascites is noted. No hepatic lesions are present. Probable hepatic steatosis. No biliary or pancreatic ductal dilatation is present. The spleen, adrenal glands, kidneys and pancreas are unremarkable. There are gallstones within the gallbladder. There is no evidence for acute cholecystitis. There are findings consistent with a small bowel obstruction. Specifically, the proximal to mid small bowel is moderately dilated and fluid-filled. Small bowel feces sign is noted. Transition point within the central pelvis on axial image 371 of 476 is noted. Distal small bowel is decompressed. Small amount of interloop ascites is present. There are pelvic surgical clips. No acute fracture or suspicious lesion is identified within visualized skeletal structures. Major vasculature is patent. No hydronephrosis. Colonic diverticulosis is noted without evidence for acute diverticulitis. The appendix is normal. There is no lymphadenopathy. No abscess. IMPRESSION: Findings consistent with a small bowel obstruction with transition point within the distal ileum. Small amount of associated ascites and mesenteric infiltration. Right upper quadrant ultrasound: IMPRESSION: 1. Cholelithiasis. No gallbladder wall thickening. 2. Trace ascites is noted. EKG: Normal sinus rhythm. Rate 90 bpm. Left axis deviation. Poor R wave progression but otherwise no acute ST/T wave changes. Code Status & VTE Plan VTE Prophylaxis Plan VTE Prophylaxis will be ordered: Yes Supervising Physician Co-Signing Physician Notes Patient seen and examined, chart reviewed, case discussed with Suzie Palacios PA-C and I agree with the assessment and plan as above except as otherwise noted General: A&Ox3. NAD. Cooperative. HEENT: Atraumatic, normocephalic. Pulm: CTAB A&P. -wheezes, -rales, -rhonchi. Symmetrical chest rise. No increase work of breathing. No respiratory distress. Cardiac: RRR, +SM. Radial pulses intact and symmetrical. Abdominal: Soft, LUQ mild TTP without rebound All labs and images reviewed 71yo who presents with SBO. Hx tubal ligation, no other hx surgical intervention/abdominal sx. Has had colonoscopies without abnormal findings in th e past, no masses/obstructions/diverticuli per pt. +leukocytosis suspect reactive but empirically covered as above. Continue Medical tx of SBO, zofran/dilaudid NPO with fluids. Trop 0.[address] changes on EKG, suspect demand, trended. Stress echo in last year negative/normal. Suspect demand isch emia. Pt does endorse liquid BMs w/o hx of C diff or recent abx use. Clinically with diarrhea not constipation although no flatus. C. diff pending. PG Care Time/CCT Total # of Minutes Spent Total Time Spent with Patient: Total time spent is greater than 50% in coordination of care (as documented) at patient's floor/unit and/or counseling patient: Coding Level of Care Code 60513 Initial Inpt Care Lvl 3 Diagnoses SBO (small bowel obstruction) K56.609 Leukocytosis D72.829 Elevated troponin R77.8 Hypertension I10 Hypothyroidism E03.9
--- NOTE | 2022-01-18 10:03 | Surgery Consultation ---
Date of Consultation January 18, 2022 Assessment & Plan (1) SBO (small bowel obstruction): Patient admitted with small bowel obstruction and dehydration I would have a very low threshold to place an NG tube if there is any pain or emesis Obviously monitor her electrolytes-follow phos and mag Rehydrate At some point possible contrast study depending on her progress Can hold off on urgent surgery for now History of Present Illness History of Present Illness 71-year-old female admitted to the emergency room with nausea and vomiting Evidence on her CAT scan of dilated small bowel consistent with small bowel obstruction with transition in the distal ileum Patient has had prior tubal ligation She is in no distress at the current time Her white blood cell count is 22,000 and she is dehydrated Allergies Allergy/AdvReac Type Severity Reaction Status Date / Time amoxicillin Allergy Intermediate SWELLING Verified 01/18/22 02:56 AND REDNESS simvastatin Allergy Mild felt sick Verified 01/18/22 02:56 tetanus toxoid, adsorbed Allergy Mild Red, hard, Verified 01/18/22 02:56 infected Prevnar 13 Intramuscular Allergy Unknown PT NOT Uncoded 01/18/22 02:56 Suspe SURE IF HAD PROBLEM WITH Home Medications Medication Instructions Recorded Confirmed Type cholecalciferol (vitamin D3) 50 2,000 units PO PM 05/17/19 01/18/22 History mcg (2,000 unit) capsule aspirin 81 mg tablet,delayed 81 mg PO PM #30 tab 08/24/19 01/18/22 History release calcium carbonate 600 mg calcium 600 mg PO PM tab 08/24/19 01/18/22 History (1,500 mg) tablet (Calcium) levothyroxine 88 mcg tablet 88 mcg PO QAM #90 tab 03/06/21 01/18/22 Rx donepezil 5 mg tablet (Aricept) 5 mg PO DAILY #30 tab 05/01/21 01/18/22 Rx atorvastatin 10 mg tablet 10 mg PO PM #90 tab 07/24/21 01/18/22 Rx irbesartan 300 mg tablet 300 mg PO PM #90 tab 09/17/21 01/18/22 Rx Patient History Medical History Benign essential tremor Hypertension Hypothyroidism Mixed hyperlipidemia Surgical History H/O arthroscopic knee surgery History of cataract surgery History of colonoscopy Family History Mother CHF (congestive heart failure) Father CHF (congestive heart failure) Sister Coronary heart disease Other Breast cancer Denies family history of Ovarian cancer Prostate cancer Myocardial infarction Colorectal cancer Social History Smoking Status: Never smoker Hx Alcohol Use: No Hx Substance Use: No Preferred Language: Welsh Communication Ability: Effective Co Founder Required: No Beliefs That Will Affect Care: None marital status: Current Living Situation: Spouse current occupational status: retired Feels Safe at Home: Yes caffeine: No Dental Care, Regularly: Yes Physical Activity Frequency: 3-4 Times per Week Seatbelt Use: always Sunscreen Use: Yes Assistive Devices: Glasses Review of Systems Review of Systems: All systems reviewed & are unremarkable except as noted in HPI & below Physical Exam Physical Exam: Patient awake and alert in no distress Not complaining of any abdominal pain Constitutional: well developed; no acute distress Eyes: + anicteric sclerae Respiratory: no respiratory distress and no labored breathing Cardiovascular: Rate/Rhythm: regular rhythm Gastrointestinal (Abdomen): Inspection/Auscultation: abdomen not distended Patient does have some bowel sounds but diminished Minimal distention, nontender Musculoskeletal: Head/Neck/Chest: head atraumatic Skin: no rashes, warm and dry Neurologic: awake Psychiatric: Orientation: alert Results & Data ([facility]) Vital Signs (Past 12 Hours) Vital Signs Temp Pulse Pulse Resp BP BP Pulse Ox 01/18/22 05:50 82 18 148/76 H 98 01/18/22 03:23 76 18 129/82 94 01/18/22 03:08 94 01/18/22 02:26 36.0 C L 90 18 108/68 96 Laboratory Results I did review the patient's laboratory values Diagnostic Findings I did review the patient's imaging PG Care Time/CCT Total # of Minutes Spent Total Time Spent with Patient: Total time spent is greater than 50% in coordination of care (as documented) at patient's floor/unit and/or counseling patient: Coding Level of Care Code 85813 Initial Inpt Care Lvl 3 Diagnoses SBO (small bowel obstruction) K56.609
[2022-01-18] MEDS ORDERED: ONDANSETRON INJ 2 MG/ML 2 ML VIAL IV PRN (10:10)
[2022-01-18] MEDS ORDERED: HYDROmorphone INJ 0.5 MG/0.5 ML SYR IV PRN (10:10)
[2022-01-18 10:51] LABS: Magnesium 1.6 mg/dl (1.7-2.4); Phosphorus 4.2 mg/dl (2.5-4.9)
[2022-01-18 11:18] LABS: Estimated Average Glucose 126 mg/dl
[2022-01-18] MEDS: D5W AND LACTATED RINGERS 1,000 ML IV SCH ×2 (11:20→21:31)
[2022-01-18] MEDS: HEPARIN SOD 5,000 UNIT/0.5 ML VIAL SQ SCH ×2 (11:20→21:38)
--- NOTE | 2022-01-18 15:28 | XCELERA ---
[id number]
--- NOTE | 2022-01-18 18:57 | Electrocardiogram Report ---
Test Reason : Blood Pressure : / mmHG Vent. Rate : 090 BPM Atrial Rate : 090 BPM P-R Int : 124 ms QRS Dur : 066 ms QT Int : 364 ms P-R-T Axes : 023 -10 018 degrees QTc Int : 445 ms Normal sinus rhythm Possible Left atrial enlargement Poor R wave progression, consider anterior MN vs. lead placement vs. LVH Abnormal ECG Confirmed by Veto La ([id number]) on 01/18/2022 6:57:12 PM Referred By: REFERRED SELF Confirmed By:Phil La
[2022-01-19 06:47] LABS: Basophils # (auto) 0.03 K/uL (0-0.2); Basophils % (auto) 0.3 %; Eosinophils # (auto) 0.15 K/uL (0-0.5); Eosinophils % (auto) 1.5 %; Hematocrit (blood only) 37.6 % (37-47); Hemoglobin 12.2 g/dL (12.0-16.0); Immature Granulocytes # (auto) 0.01 K/uL (0.00-0.02); Immature Granulocytes % (auto) 0.1 %; Lymphocytes # (auto) 3.23 K/uL (1.2-3.4); Lymphocytes % (auto) 33.4 %; Mean Corpuscular Hemoglobin 30.9 pg (25-34); Mean Corpuscular Hgb Conc 32.4 g/dL (32-36); Mean Corpuscular Volume 95.2 fL (80-100); Mean Platelet Volume 10.7 fL (7.4-10.4); Monocytes # (auto) 0.89 K/uL (0.11-0.59); Monocytes % (auto) 9.2 %; Neutrophils # (auto) 5.37 K/uL (1.4-6.5); Neutrophils % (auto) 55.5 %; Platelet Count 345 K/uL (130-400); RDW Coefficient of Variation 13.7 % (11.5-14.5); RDW Standard Deviation 48.1 fL (36.4-46.3); Red Blood Count 3.95 M/uL (4.2-5.4); White Blood Count 9.68 K/uL (4.8-10.8)
[2022-01-19 06:55] LABS: BUN Creatinine Ratio 22.6 (10-20); Calcium 7.9 mg/dl (8.5-10.1); Creatinine Clr Calc Pharmacy 53.6 ml/min; Est GFR (African American) 79.9 ml/min; Magnesium 1.8 mg/dl (1.7-2.4); Potassium 3.5 mmol/L (3.5-5.1)
--- NOTE | 2022-01-19 07:06 | Surgery Progress Note ---
Date of Service January 19, 2022 Assessment & Plan (1) Small bowel obstruction: Plan: Patient has had no emesis She is having bowel movements although loose and frequent-check C. difficile if possible We will try some clear liquids We will monitor her closely for progress Check a.m. labs including mag and Phos Admission and Anticipated Discharge Date Admission Date: January 18, 2022 Subjective Patient awake and alert No emesis or nausea Has had multiple loose bowel movements over the evening Unsure if she is passing any gas Review of Systems Review of Systems: All systems reviewed & are unremarkable except as noted in HPI & below Physical Exam Physical Exam: Patient awake and alert in no distress Not complaining of any abdominal pain Decreased bowel sounds Constitutional: well developed; no acute distress Eyes: + anicteric sclerae Respiratory: no respiratory distress and no labored breathing Cardiovascular: Rate/Rhythm: regular rhythm Gastrointestinal (Abdomen): Inspection/Auscultation: abdomen not distended Patient does have some bowel sounds but diminished Minimal distention, nontender Musculoskeletal: Head/Neck/Chest: head atraumatic Skin: no rashes, warm and dry Neurologic: awake Psychiatric: Orientation: alert Results & Data ([facility]) Vital Signs (Past 12 Hours) Vital Signs Temp Pulse Resp BP Pulse Ox 01/18/22 22:28 36.9 C 77 18 159/72 H 98 PG Care Time/CCT Total # of Minutes Spent Total Time Spent with Patient: Total time spent is greater than 50% in coordination of care (as documented) at patient's floor/unit and/or counseling patient: Coding Level of Care Code 66430 Inpt Consult Level 3 Diagnoses Small bowel obstruction K56.609
[2022-01-19] MEDS: D5W AND LACTATED RINGERS 1,000 ML IV SCH (07:14)
--- NOTE | 2022-01-19 07:57 | XRay Report ---
XR KUB/Abdomen 1 view CLINICAL HISTORY: r/o sbo TECHNIQUE: 1 view of the abdomen was obtained. Comparison: None available at the time of this dictation. FINDINGS: Surgical clips are seen in the pelvis. The osseous structures are grossly unremarkable. The bowel gas pattern is nonobstructive. A moderate amount of stool is noted within the large bowel. IMPRESSION: Nonobstructive bowel gas pattern. ACT 112: Negative or not required by law. Electronically signed by: Bharath Christy M.D. 01/19/2022 7:55 AM
[2022-01-19] MEDS: HEPARIN SOD 5,000 UNIT/0.5 ML VIAL SQ SCH ×2 (09:31→20:17)
[2022-01-19 12:56] LABS: Cdiff Antigen Positive; Cdiff Toxin A+B Negative Cdiff Toxin (Negative)
[2022-01-19] MEDS: VANCOMYCIN HCL 125 MG/2.5ML SOLN PO SCH ×3 (13:12→23:43)
[2022-01-19] MEDS: RASPBERRY SYRUP 5 ML UDP PO SCH ×3 (13:13→23:43)
--- NOTE | 2022-01-19 17:33 | Hospitalist Progress Note ---
Date of Service January 19, 2022 Assessment & Plan (1) SBO (small bowel obstruction): Plan: 71-year-old white female with a past medical history of HTN, HLD and hypothyroidism presented to the emergency department with abdominal pain and found to have radiographic evidence of a small bowel obstruction and associated leukocytosis hospitalized for further evaluation and care. * Past surgical history includes: Bilateral tubal ligation. Uncertain if this is a mechanical obstruction from adhesions * Does have associated leukocytosis. Likely due to CDI (see below) +/- reactive with SBO * No NGT indicated at this time * IV Dilaudid for pain and IV Zofran for nausea * Surgery consulted, appreciate recs. Continue clears. * With c diff positive other abx discontinued, vanco started as below * Patient is UTD with colonoscopy done 2 to 3 years ago and "normal" per patient * Daily labs, replete electrolytes * Continue to follow clinically (2) Clostridioides difficile infection: Plan: - Positive CDI - Vanco 125mg PO Q6h - Other abx discontined - Contact precautions - trend cbc/bmp, follow clinically. (3) Leukocytosis: Plan: * Resolved, ?reactive vs CDI Abx as above (4) Elevated troponin: Plan: * Presenting troponin slightly elevated at 0.19. Denies reports of chest pain. EKG nonacute. * Stress echocardiogram done 04/23/2021 and negative for ischemia * Suspect supply/demand mismatch secondary to #1 * Trop downtrending * No ST change on EKG, no clinical signs of ACS * Repeat TTE with normal LVEF, normal wall motion (5) Hypertension: Plan: * Resume home antihypertensives (6) Hypothyroidism: Plan: * Resumed synthroid Admission and Anticipated Discharge Date Admission Date: January 18, 2022 Subjective Continues to have liquid diarrhea. No solid BM. Mild abd discomfort similar to slightly ipmroved compared to yesterday. No fever, chills, sweats, CP, CP, shortness of breath. No vomiting. Review of Systems Review of Systems: All systems reviewed & are unremarkable except as noted in Subjective Physical Exam Physical Exam: General: A&Ox3. NAD. Cooperative. HEENT: Atraumatic, normocephalic. Vision/hearing grossly intact Pulm: CTAB A&P. -wheezes, -rales, -rhonchi. Symmetrical chest rise. No increased work of breathing. No respiratory distress. Cardiac: RRR, -mrg. Radial pulses intact and symmetrical. Abdominal: Trace TTP supraumbilically, otherwise soft NT. BS diminished. Results & Data Results & Data ([facility]) Vital Signs (Past 12 Hours) Vital Signs Temp Pulse Resp BP Pulse Ox 01/19/22 09:33 36.8 C 72 18 132/82 97 PG Care Time/CCT Total # of Minutes Spent Total Time Spent with Patient: Total time spent is greater than 50% in coordination of care (as documented) at patient's floor/unit and/or counseling patient: Coding Level of Care Code 09849 Subseq Hosp Care Lvl 2 Diagnoses SBO (small bowel obstruction) K56.609 Leukocytosis D72.829 Elevated troponin R77.8 Hypertension I10 Hypothyroidism E03.9 Clostridioides difficile infection A49.8
[2022-01-19] MEDS: POT PHOSPHATE MONOBASIC W/ SOD TAB PO SCH (20:16)
[2022-01-19] MEDS ORDERED: ASPIRIN 81 MG ECTAB PO SCH (21:00)
[2022-01-19] MEDS ORDERED: ATORVASTATIN 10 MG TAB PO SCH (21:00)
[2022-01-19] MEDS ORDERED: IRBESARTAN 150 MG TAB PO SCH (21:00)
[2022-01-20 05:13] LABS: Basophils # (auto) 0.03 K/uL (0-0.2); Basophils % (auto) 0.4 %; Eosinophils # (auto) 0.18 K/uL (0-0.5); Eosinophils % (auto) 2.4 %; Hematocrit (blood only) 35.4 % (37-47); Hemoglobin 11.7 g/dL (12.0-16.0); Immature Granulocytes # (auto) 0.01 K/uL (0.00-0.02); Immature Granulocytes % (auto) 0.1 %; Lymphocytes # (auto) 3.46 K/uL (1.2-3.4); Lymphocytes % (auto) 45.8 %; Mean Corpuscular Hgb Conc 33.1 g/dL (32-36); Mean Corpuscular Volume 93.9 fL (80-100); Mean Platelet Volume 10.3 fL (7.4-10.4); Monocytes # (auto) 0.64 K/uL (0.11-0.59); Monocytes % (auto) 8.5 %; Neutrophils # (auto) 3.23 K/uL (1.4-6.5); Neutrophils % (auto) 42.8 %; Platelet Count 327 K/uL (130-400); RDW Coefficient of Variation 13.3 % (11.5-14.5); RDW Standard Deviation 45.8 fL (36.4-46.3); Red Blood Count 3.77 M/uL (4.2-5.4); White Blood Count 7.55 K/uL (4.8-10.8)
[2022-01-20 05:31] LABS: BUN Creatinine Ratio 14.1 (10-20); Calcium 8.7 mg/dl (8.5-10.1); Creatinine Clr Calc Pharmacy 57.7 ml/min; Est GFR (African American) 87.4 ml/min; Est GFR (Non-African American) 75.4 ml/min; Magnesium 1.7 mg/dl (1.7-2.4); Phosphorus 2.7 mg/dl (2.5-4.9); Potassium 3.6 mmol/L (3.5-5.1)
[2022-01-20] MEDS: VANCOMYCIN HCL 125 MG/2.5ML SOLN PO SCH (05:48)
[2022-01-20] MEDS: RASPBERRY SYRUP 5 ML UDP PO SCH (05:48)
[2022-01-20] MEDS ORDERED: LEVOTHYROXINE SODIUM 88 MCG TABLET PO SCH (06:30)
--- NOTE | 2022-01-20 06:50 | Surgery Progress Note ---
Date of Service January 20, 2022 Assessment & Plan (1) Small bowel obstruction: Plan: Does not appear to have significant obstruction Positive C. difficile-on p.o. vancomycin Tolerated full liquids-we will advance to low fiber diet Discharge home when medically stable Admission and Anticipated Discharge Date Admission Date: January 18, 2022 Subjective Patient awake and alert No emesis or nausea Some loose bowel movements, some flatus On p.o. vancomycin for positive C. difficile Review of Systems Review of Systems: All systems reviewed & are unremarkable except as noted in HPI & below Physical Exam Physical Exam: Patient awake and alert in no distress Not complaining of any abdominal pain she was Constitutional: well developed; no acute distress Eyes: + anicteric sclerae Respiratory: no respiratory distress and no labored breathing Cardiovascular: Rate/Rhythm: regular rhythm Gastrointestinal (Abdomen): Inspection/Auscultation: abdomen not distended Patient does have some bowel sounds but diminished Minimal distention, nontender Musculoskeletal: Head/Neck/Chest: head atraumatic Skin: no rashes, warm and dry Neurologic: awake Psychiatric: Orientation: alert Results & Data ([facility]) Vital Signs (Past 12 Hours) Vital Signs Temp Pulse Resp BP Pulse Ox 01/19/22 22:07 36.5 C 65 16 147/75 H 96 PG Care Time/CCT Total # of Minutes Spent Total Time Spent with Patient: Total time spent is greater than 50% in coordination of care (as documented) at patient's floor/unit and/or counseling patient: Coding Level of Care Code 10310 Inpt Consult Level 3 Diagnoses Small bowel obstruction K56.609
[2022-01-20] MEDS ORDERED: DONEPEZIL HCL 5 MG TAB PO SCH (09:00)
[2022-01-20] MEDS: POT PHOSPHATE MONOBASIC W/ SOD TAB PO SCH (09:18)
[2022-01-20] MEDS: HEPARIN SOD 5,000 UNIT/0.5 ML VIAL SQ SCH (09:19)
--- NOTE | 2022-01-20 10:58 | Discharge Summary ---
Date of Service January 20, 2022 Admission HPI Per Admitting Provider Mrs. Gamez is a 71-year-old white female with an underlying past medical history of HTN, HLD, and hypothyroidism. She presented to the emergency department complaining of intermittent abdominal discomfort X 2 days. Started yesterday late morning. Located in the LLQ and radiates into the suprapubic region. Has been waxing and waning. Worse after eating lunch yesterday. Described as a cramping sensation and at its worst is a 6/10. Reports that the discomfort comes in waves and although she did not do note that it was aggravated by oral intake, her reports that it seemed much worse after lunch. Was unable to eat dinner last evening because of the pain. Denies any fevers or chills but did have associated vomiting X3 bouts. Last normal bowel movement was yesterday morning and since then it has been loose stools. No other ill contacts. Presented to the emergency department where she was found to have leukocytosis of 22,000 with a left shift and radiographic evidence of a small bowel obstruct ion. Only abdominal surgeries in the past is a laparoscopic bilateral tubal ligation. She is up-to-date with colonoscopy (done 2 to 3 years ago and normal per patient). She was treated with IV Zofran in the emergency department and subsequently hospitalized for further evaluation and care. Admission Exam Per Admitting Provider General: Resting comfortably in her hospital bed. She does not appear in any discomfort. She does not appear ill or toxic. NAD. HEENT: Head is AT/NC. Buccal mucosa is moist and pink. Poor dentition Neck: No JVD. Negative hepatojugular reflex Cardiac: RRR with 1/6 to 2/6 ABBY Lungs: CTA without W/R/R Abdomen: Hypoactive X4. Abdomen is nondistended. It is soft with tenderness in the LL and RYAN quadrants Extremities: No peripheral clubbing cyanosis or edema Neuro: A&O X4. Cranial nerves II through XII are grossly intact. No focal neuro deficits Skin: No obvious skin lesions or rashes Psych: Appropriate affect. Pleasant and cooperative Principal Diagnosis SBO Discharge Exam Constitutional: obese, in no apparent distress, sitting comfortably in bed. Eyes: EOMI, pupils equal and reactive bilaterally, no scleral icterus Cardiac: RRR, no murmurs, gallops or rubs. Normal S1, S2 Pulm: CTA BL, no wheezes, rhonchi, crackles or rubs, moving air well throughout both lungs Abd: soft, nontender, nondistended, normal bowel sounds, no rebound or guarding Extremities: 2+ peripheral pulses, no edema Neuro: no focal deficits, moving all 4 limbs, A&Ox3 Discharge Data Allergies Allergy/AdvReac Type Severity Reaction Status Date / Time amoxicillin Allergy Intermediate SWELLING Verified 01/18/22 02:56 AND REDNESS simvastatin Allergy Mild felt sick Verified 01/18/22 02:56 tetanus toxoid, adsorbed Allergy Mild Red, hard, Verified 01/18/22 02:56 infected Prevnar 13 Intramuscular Allergy Unknown PT NOT Uncoded 01/18/22 02:56 Suspe SURE IF HAD PROBLEM WITH Consultations 01/18/22 07:15 ED Decision to Admit Stat 01/18/22 09:36 Consult General Surgery Stat Ordered Studies 01/18/22 03:37 US gallbladder Urgent 01/18/22 05:27 CT abd pelvis IV con only Urgent Hospital Course (1) Small bowel obstruction: 71 yo F with PMH HTN, Hypothyroidism, HLD admitted for management of abdominal pain secondary to small bowel obstruction noted on CT A/P. SBO - resolved with conservative management. Evaluated by surgical team but no surgery required. Noted to have mildly elevated troponin on admission, but had no chest pain or EKG changes to corroborate cardiac injury. Noted to be CDiff gene positive, however toxin negative, therefore did not continue treatment of Cdiff infection with vancomycin. CT A/P: FINDINGS: Lung bases are unremarkable. No pneumatosis, free air or portal venous gas is present. A small amount of abdominal and pelvic ascites is noted. No hepatic lesions are present. Probable hepatic steatosis. No biliary or pancreatic ductal dilatation is present. The spleen, adrenal glands, kidneys and pancreas are unremarkable. There are gallstones within the gallbladder. There is no evidence for acute cholecystitis. There are findings consistent with a small bowel obstruction. Specifically, the proximal to mid small bowel is moderately dilated and fluid-filled. Small bowel feces sign is noted. Transition point within the central pelvis on axial image 371 of 476 is noted. Distal small bowel is decompressed. Small amount of interloop ascites is present. There are pelvic surgical clips. No acute fracture or suspicious lesion is identified within visualized skeletal structures. Major vasculature is patent. No hydronephrosis. Colonic diverticulosis is noted without evidence for acute diverticulitis. The appendix is normal. There is no lymphadenopathy. No abscess. IMPRESSION: Findings consistent with a small bowel obstruction with transition point within the distal ileum. Small amount of associated ascites and mesenteric infiltration. All other chronic medical conditions managed per home regimen. Total Time Total Time Spent Total Time Spent (In Minutes): <30 Discharge Plan Discharge Items Patient Disposition: Home - Self-Care Reason For Visit: SBO Discharge Diagnosis: SBO Activity: Resume your previous activity Non-emergency contact: Primary Care Provider Call non-emergency contact if: you have any medication questions Follow-up/Referrals: Miriam Roberto CRNP [Primary Care Provider] - Diet: Regular Addtl Attending Provider Instructions: You were evaluated in the hospital for symptoms of abdominal pain that were found to be due to a small bowel obstruction. This improved with bowel rest and is progressing well to return to normal. There was some initial confusion regarding whether you also had a CDiff infection. You tested positive for the CDiff GENE, which means that you carry the Cdiff bacteria normally in your system. However you were negative for the TOXIN, which is only present during active infections. Since you did not have this, you DO NOT need active treatment of the Cdiff infection, thus your antibiotics have been stopped. If you have multiple, loose/watery bowel movements in the future, you may have an active Cdiff infection; make sure to talk to your doctor at that time. It was a pleasure taking care of you. Pending Studies at Discharge: No Stand-Alone Forms: My [facility] [employer], Smoking Cessation Medications and DC Order Prescriptions: Continued levothyroxine 88 mcg tablet 88 mcg PO QAM Qty: 90 RF: 3 atorvastatin 10 mg tablet 10 mg PO PM Qty: 90 RF: 3 irbesartan 300 mg tablet 300 mg PO PM Qty: 90 RF: 3 calcium carbonate [Calcium 600] 600 mg calcium (1,500 mg) tablet 600 mg PO PM RF: 0 donepezil [Aricept] 5 mg tablet 5 mg PO DAILY Qty: 30 RF: 8 cholecalciferol (vitamin D3) 2,000 unit capsule 2,000 units PO PM RF: 0 aspirin 81 mg tablet,delayed release (DR/EC) 81 mg PO PM Qty: 30 RF: 0 Discharge Orders: Discharge Order (Routine); Ordered 01/20/22 Ordered By: Alfreda Frias/Other Patient Handouts: Prediabetes, 5 Steps for Eating Healthier Admission Data Admit Date/Time: 01/18/22 07:37 Attending Provider: Shay Ruiz Admit Provider: Pacheco Gomez Primary Care Provider: Miriam Roberto Other Providers: Pacheco Gomez ; Lonnie Ryan Other Interventions: Discharge Summary Assessment (RN) Last Done: 01/20/22 11:15 Supervising Physician Co-Signing Physician Notes I personally examined the patient and verified all sanchez points of history and exam, discussed case, and agree with decision making with Dr Matthews feeling good wants to go home. discussed Cdiff treatment and small but real risk for recurrence vitals noted nad heent nc at mmm breathing unlabored no accessory muscles good effort Cdiff - home on vanco. discussed recurrence risk. follow up as outpt Resident Activity Tracking Resident Involvement: Resident Care Provided Care Provided: Adult Hospital Medicine
--- NOTE | 2022-01-20 16:07 | Billing Data ---
Date of Service January 20, 2022 Coding Level of Care Code D/C DAY MANAGEMENT <30 MINS
== END 2022-01-20 12:11 | disposition home or self-care (01) | DRG 390 ==
LOC: ED 02:26 → EDINP 07:37 → SUATTDRO 07:37 → 3E 15:00